=== PATIENT | male | born 1970 | race Caucasian/White ===

== ENCOUNTER 2016-06-29 15:40 | Emergency (ER) | payer MEDICAID, OTHER ==
[~2016-06-29] VITALS: Ht 165.1 cm; Wt 67.5 kg
[2016-06-29 15:45] VITALS: Ht 165.1 cm; Wt 67.5 kg
[2016-06-29] MEDS ORDERED: IBUPROFEN 600 MG TAB PO ONE (16:00)
[2016-06-29] MEDS ORDERED: HYDROCODONE/APAP (5/325) TAB PO ONE (16:00)
[2016-06-29] MEDS ORDERED: ACET1TAB40 PO (17:00)
--- NOTE | 2016-06-29 17:03 | ERD ---
ER Documentation Chief Complaint Date/Time DATE: 06/29/16 TIME: 17:02 Chief Complaint LEFT HAND INJURY FELL BACK, TRIED TO STABILIZE HIMSELF WHILE INJURING ARM HPI This 38-year-old male complains of left wrist pain after falling backwards. His pain and swelling of the left distal radius here. He has restricted range of motion due to pain but no weakness. He has no bleeding or lacerations. He denies any shoulder elbow pain. ROS All systems reviewed and are negative except as per history of present illness. Medications Home Meds Active Scripts Acetaminophen with Codeine (Acetaminophen-Cod #3 Tablet) 1 Each Tablet, 1 TAB PO Q6H Y for PAIN, #14 TAB Prov:BURAK ALDANA MD 06/29/16 Allergies Allergies: Coded Allergies: ibuprofen (Verified Allergy, Severe, rash/facial swelling, 06/29/16) PMhx/Soc Medical and Surgical Hx: pt denies Medical Hx, pt denies Surgical Hx History of Surgery: No Anesthesia Reaction: No Hx Neurological Disorder: No Hx Respiratory Disorders: No Hx Psychiatric Problems: No Hx Miscellaneous Medical Probl: No Hx Alcohol Use: Yes Hx Substance Use: No Hx Tobacco Use: Yes Smoking Status: Current every day smoker Physical Exam Vitals Vital Signs Date Time Temp Pulse Resp B/P Pulse Ox O2 Delivery O2 Flow Rate FiO2 06/29/16 15:45 97.7 83 17 175/72 100 Physical Exam Const: [] Alert, [id number]. Head: Atraumatic Eyes: Normal Conjunctiva ENT: Normal External Ears, Nose and Mouth. Neck: Full range of motion..~ No meningismus. Resp: Clear to auscultation bilaterally Cardio: Regular rate and rhythm, no murmurs Abd: Soft, non tender, non distended. Normal bowel sounds Skin: No petechiae or rashes Back: No midline or flank tenderness Ext: No cyanosis, or edema there is some tenderness and swelling left distal radius area. There is no significant snuffbox tenderness. There is restriction of motion due to weakness no appreciable tendon or neurologic deficits Neur: Awake and alert Psych: Normal Mood and Affect Results 24 hrs Current Medications Medications (Trade) Dose Ordered Sig/Estephania Route PRN Reason Start Time Stop Time Status Last Admin Dose Admin Ibuprofen (Motrin) 600 mg ONCE ONCE PO 06/29/16 16:00 06/29/16 16:01 DC Acetaminophen/ Hydrocodone Bitart (Golf (5/325)) 1 tab ONCE ONCE PO 06/29/16 16:00 06/29/16 16:01 DC 06/29/16 16:04 Procedures/MDM X-ray left wrist 3V Interpreted by me: Scaphoid: [Normal] Bones: Is nondisplaced intra-articular distal radius and ulnar styloid fracture. Joints: [No dislocation] Foreign body: [None]. Impression-nondisplaced intra-articular left distal radius fracture and ulnar styloid fracture Patient was placed in left short arm splint. Patient was neurovascular intact after splint. Patient was discharged home instructions for orthopedic follow- up with me next week. Is advised he may need authorization from his primary care doctor. He should return sooner for fevers, redness, new symptoms. There is no current evidence to suggest tendon or neurologic deficit, bacterial infection, ischemia Departure Diagnosis: Primary Impression: Wrist fracture, left Encounter type: initial encounter Fracture type: closed Qualified Code: S62.102A - Wrist fracture, left, closed, initial encounter Condition: Stable Patient Instructions: Treating Wrist Fractures, Colles Fracture, No Reduction Required Referrals: ROSALINO GRIGGS MD Additional Instructions: Va al conklin doctor/ specialista para mas evaluacon en el proximo semana. posiblemente necesita autorizado de conklin doctor primario para specialista. Regresa para fiebre, o mas o nueva simptomas. BURAK ALDANA MD Jun 29, 2016 17:03
--- NOTE | 2016-06-29 18:12 | RADRPT ---
PROCEDURE: XR Wrist. CLINICAL INDICATION: Pain following acute trauma. TECHNIQUE: AP, lateral and oblique views of the left wrist were performed. COMPARISON: No prior studies are available for comparison. FINDINGS: There is an acute, minimally displaced, comminuted, intra-articular, left distal radial fracture. T here is also a mildly displaced, left ulnar styloid fracture. Near anatomic alignment is present. The carpal bones and metacarpals appear intact. IMPRESSION: Acute, minimally displaced, comminuted, intra-articular, left distal radial and ulnar styloid fractu res. RPTAT: QQ. .Janki Mayorga MD, MD Date Time Electronically viewed and signed by .Janki Mayorga MD, on 06/29/2016 18:12 .F/
== END 2016-06-29 17:35 | disposition home or self-care (01) ==
LOC: FTE 15:40
DX: S52.502A Unspecified fracture of the lower end of left radius, initial encounter for closed fracture (principal); F17.210 Nicotine dependence, cigarettes, uncomplicated; S52.615A Nondisplaced fracture of left ulna styloid process, initial encounter for closed fracture; W19.XXXA Unspecified fall, initial encounter; Y92.9 Unspecified place or not applicable
CPT/HCPCS: 29125; 73110; Z7610